=== PATIENT | male | born 1960 | race Caucasian/White ===

== ENCOUNTER 2017-05-13 07:49 | Emergency (ER) | payer OTHER ==
--- NOTE | ~2017-05-13 | ER ---
PATIENT'S NAME: LUIGI WILSON [facility] AGE: 56 Y [address] ROOM: [place] [address] LOCATION: ED ADMIT DATE: 05/13/2017 ER/Outpatient Report DISCHARGE DATE: 05/13/2017 FAMILY PHYSICIAN: Young Beckman PA-C ATTENDING PHYSICIAN: Brandt Currie CHIEF COMPLAINT: Chest pain. HISTORY OF PRESENT ILLNESS: Mr. Wilson presents for evaluation of chest pain. The pain started this morning around 0530 hours and lasted about 30 minutes. It was associated with cold sweating. This was when he woke up. He has not had any pain or other symptoms since. He has never had anything like this before. He has a history of [id number] diabetes. No personal other issues. He is a nonsmoker. No problems with hypertension or cholesterol issues. PAST MEDICAL HISTORY: Documented in the record and reviewed by me. SOCIAL HISTORY: Documented in the record and reviewed by me. MEDICATIONS: Documented in the record and reviewed by me. ALLERGIES: DOCUMENTED IN THE RECORD AND REVIEWED BY ME. REVIEW OF SYSTEMS: All systems were reviewed and negative except as noted in the HPI. PHYSICAL EXAMINATION: VITAL SIGNS: Blood pressure 158/94, pulse is 67, respiratory rate is 20, and SpO2 is 98% on room air. Pain is rated at 0/10. GENERAL: Age-appropriate male, recumbent on exam table, in no apparent pain or distress. NEUROLOGIC: Awake and alert. GCS 15. No focal deficits. No asymmetry. HEENT: Normocephalic and atraumatic. Eyes are PERRL. Oropharynx is clear. NECK: Supple. Trachea is midline. CHEST/HEART: Regular rate and rhythm with no murmurs. LUNGS: Clear to auscultation bilaterally with no rhonchi, wheezes, or rales. ABDOMEN: Soft, nontender, and nondistended. No rebound or guarding. BACK: Normal to inspection and palpation. EXTREMITIES: Warm, well formed, and well perfused with no obvious PATIENT'S NAME: LUIGI WILSON [facility] AGE: 56 Y [address] ROOM: [place] [address] LOCATION: [facility] ADMIT DATE: 05/13/2017 ER/Outpatient Report DISCHARGE DATE: 05/13/2017 FAMILY PHYSICIAN: Young Beckman PA-C ATTENDING PHYSICIAN: Brandt Currie abnormalities. The extremities are unremarkable. SKIN: Clean, dry, and intact without diaphoresis. LABORATORY DATA AND IMAGING STUDIES: Labs and X-rays: Initial and repeat EKG were obtained and are unremarkable. Initial EKG with sinus rhythm, rate of 63, with normal intervals and slight left axis. No obvious signs of ischemia. Repeat EKG is unchanged. CBC is unremarkable. INR is 0.95. CMS with no appreciable abnormalities other than a potassium of 3.5. CPK is 42, CK-MB is 1.2, and troponin I is below detectable threshold. Magnesium at 2.3. Repeat cardiac enzymes were obtained and troponin remains undetectable. IMPRESSION: Chest pain, not otherwise specified. EMERGENCY DEPARTMENT COURSE: The patient was seen and evaluated at bedside. Currently asymptomatic. No pain with ambulation. Cardiac rule out was undertaken. Not consistent with pneumonia, pneumothorax, or PE. Some risk factors for ACS. Stable EKGs and normal enzymes. Discussed the case with Dr. Claudia Magana. We will have the patient have outpatient stress test within the next 24 hours preferably if able to be scheduled and close followup with Dr. Claudia Magana. Return immediately to the ER if worsening symptoms. MD KRISTAN JONES/suad /[id number] d: 05/13/171944 t: 05/17/17 0750, OUTPATIENT REPORT
[2017-05-13 08:12] LABS: BASOPHIL % 0.3 %; EOSINOPHIL # 0.1 K/uL (0.0-0.5); EOSINOPHIL % 0.8 %; HEMATOCRIT 40.6 % (37.0-53.0); IMMATURE GRANULOCYTE % 0.4 %; LYMPHOCYTE # 1.5 K/uL (0.8-4.0); LYMPHOCYTE % 21.3 %; MCH 31.6 pg (27.0-34.0); MCHC 36.9 gm/dL (32.0-36.5); MCV 85.7 fl (83.0-98.0); MONOCYTE # 0.6 K/uL (0.0-1.0); MONOCYTE % 8.3 %; MPV 10.2 fl (9.4-12.4); NEUTROPHIL # (ANC) 4.9 K/uL (1.4-9.0); NEUTROPHIL % 68.9 %; NRBC % 0 /100WBC (0-0.00); PLATELET COUNT 189 K/uL (150-450); RBC 4.74 M/uL (4.00-6.00); RDW-CV 12.2 % (11.9-14.6); WBC 7.1 K/uL (4.0-11.0)
[2017-05-13 08:22] LABS: INR - (THERAPEUTIC) 0.95 (0.92-1.07); PTT 28 SECONDS (25-32)
[2017-05-13 08:30] LABS: ALBUMIN 3.9 gm/dL (3.5-5.0); ALK PHOS 59 IU/L (33-138); ALT 34 IU/L (12-78); ANION GAP 8.5 (10.0-19.0); AST 19 IU/L (10-40); BLOOD UREA NITROGEN 18 mg/dL (6-24); CALCIUM 8.6 mg/dL (8.5-10.5); CHLORIDE 105 mMol/L (96-110); CO2 29 mMol/L (22-32); CPK 42 IU/L (35-332); CREATININE 1.1 mg/dL (0.6-1.3); MAGNESIUM 2.3 mg/dL (1.8-2.6); POTASSIUM 3.5 mMol/L (3.7-5.1); SODIUM 139 mMol/L (135-145); TOTAL BILIRUBIN 0.8 mg/dL (0.0-1.5); TOTAL PROTEIN 7.5 g/dL (6.0-8.4)
[2017-05-13 10:18] LABS: CPK 36 IU/L (35-332)
== END 2017-05-13 11:13 | disposition disaster alternative care site (69) ==
LOC: GMED 07:49
PROVIDERS: Emergency Medicine
DX: R07.9 Chest pain, unspecified (principal); E11.9 Type 2 diabetes mellitus without complications; Z98.890 Other specified postprocedural states; Z90.89 Acquired absence of other organs